=== PATIENT | female | born 1935 | race Caucasian/White ===

== ENCOUNTER → 2017-02-08 | Outpatient (CLI) | payer OTHER | LOC: FIMAGING 09:28 | PROVIDERS: ATTEND Family Medicine | DX: Z12.31 Encounter for screening mammogram for malignant neoplasm of breast (principal) | CPT/HCPCS: G0202 ==

== ENCOUNTER → 2018-02-09 | Outpatient (CLI) | payer OTHER | LOC: FIMAGING 10:04 | PROVIDERS: ATTEND Family Medicine | DX: Z12.31 Encounter for screening mammogram for malignant neoplasm of breast (principal) ==

== ENCOUNTER 2018-11-29 06:53 | Inpatient (IN) | payer OTHER ==
--- NOTE | 2018-11-29 06:16 | PDHPUP ---
History & Physical Update H&P update statement: This history and physical update is based on an assessment of the patient which was completed after admission or registration (within 24 hours), but prior to the surgery/procedure. H&P update: H&P reviewed & patient examined, no change in patient's condition since H&P completed
[~2018-11-29 06:53] MED LIST: ROPIVACAINE 0.2% 80 MG, EPINEPHrine 0.2 MG, KETOROLAC TROMETHAMINE 30 MG in SYRINGE 0 ML IU ONE; TRANEXAMIC ACID 3,000 MG in NS (SYRINGE) 50 ML IRR ONE; ceFAZolin 2 GM/DEXTROSE 100 ML IV ONE
[2018-11-29] MEDS ORDERED: ACETAMINOPHEN 325 MG TAB PO ONE (07:04)
[2018-11-29] MEDS ORDERED: DEXAMETHASONE 4 MG/ML VIAL IVP ONE (07:04)
[2018-11-29] MEDS ORDERED: FAMOTIDINE 20 MG TAB PO ONE (07:04)
[2018-11-29] MEDS ORDERED: LR 1,000 ML IV ONE (07:05)
[2018-11-29] MEDS ORDERED: fentaNYL 100 MCG/2 ML INJ ONE ×2 (07:46→10:54)
[2018-11-29] MEDS ORDERED: ONDANSETRON 4 MG/2 ML VIAL ONE (07:46)
[2018-11-29] MEDS ORDERED: LIDOCAINE 2% 100 MG/5 ML SYR ONE (07:46)
[2018-11-29] MEDS ORDERED: ROPIVACAINE HCL 150 MG/30 ML INJ ONE (07:46)
[2018-11-29] MEDS ORDERED: PROPOFOL/EMULSION 500 MG/50 ML BOTTLE IV ONE ×2 (07:47→09:33)
[2018-11-29] MEDS ORDERED: TRANEXAMIC ACID 3,000 MG/50 ML BAG IRR ONE (07:56)
[2018-11-29] MEDS ORDERED: VANCOMYCIN 1 GM VIAL ONE (08:23)
--- NOTE | 2018-11-29 08:53 | PDANEPAE ---
ANE History of Present Illness left knee djd, here for LTKA ANE Past Medical History - Cardiovascular History Hx Hypertension: Yes Hx Arrhythmias: No Hx Chest Pain: No Hx Coronary Artery / Peripheral Vascular Disease: No Hx CHF / Valvular Disease: No Hx Palpitations: No Cardiovascular History Comment: HIGH CHOLESTEROL - Pulmonary History Hx COPD: No Hx Asthma/Reactive Airway Disease: No Hx Recent Upper Respiratory Infection: No Hx Oxygen in Use at Home: No Hx Sleep Apnea: No Sleep Apnea Screening Result - Last Documented: Negative - Neurologic History Hx Cerebrovascular Accident: No Hx Seizures: No Hx Dementia: No - Endocrine History Hx Diabetes: No Endocrine History Comment: HYPOTHYROID - Renal History Hx Renal Disorders: No Renal History Comment: STRESS INCONTINENCE - Liver History Hx Hepatic Disorders: No - Neurological & Psychiatric Hx Hx Neurological and Psychiatric Disorders: No - Cancer History Hx Cancer: No Cancer History Comment: pre-cancerous removed - Congenital Disorder History Hx Congenital Disorders: No - GI History Hx Gastrointestinal Disorders: Yes Gastrointestinal History Comment: diverticulosis - Other Health History Other Health History: MAC DEGEN R EYE. CARPAL TUNNEL FINGERS - Chronic Pain History Chronic Pain: Yes (R KNEE PAIN) - Surgical History Prior Surgeries: 10/15/15 right TKA with Jeri. cataracts. COLONOSCOPY 2013. CONIZATION OF CERVIX 1972. D&C 1972 ANE Review of Systems Review of Systems: - Exercise capacity METS (RN): 4 METS ANE Patient History - Allergies Allergies/Adverse Reactions: No Known Allergies Allergy (Verified 11/09/18 15:31) - Home Medications Home Medications: Aspirin EC [Aspirin EC 81 mg (*)] 81 mg PO DAILY 11/09/18 [Last Taken 11/23/18] Atorvastatin Calcium [Lipitor 10 mg (*)] 10 mg PO HS 11/09/18 [Last Taken ] Cholecalciferol Vit D3 [Vitamin D3 2000 units tab (OTC)] 2,000 units PO HS 11/09 [Last Taken 11/15/18] Levothyroxine [Synthroid 100 mcg (*)] 100 mcg PO DAILY06 11/09/18 [Last Taken 05:00] Multivitamins [Multivitamin (*)] 1 each PO DAILY 11/09/18 [Last Taken 11/15/18] Vit A/Vit C/Vit E/Zinc/Copper [I-Lynnette Protect Tablet] 1 each PO DAILY 11/09/18 [ Last Taken 11/15/18] amLODIPine BESYLATE [Norvasc 5 mg (*)] 5 - 10 mg PO DAILY 11/09/18 [Last Taken 11/29/18 05:00] - NPO status NPO Since - Liquids (Date): 11/29/18 NPO Since - Liquids (Time): 05:15 NPO Since - Solids (Date): 11/28/18 - Smoking Hx Smoking Status: Never smoked - Family Anes Hx Family Hx Anesthesia Complications: none ANE Labs/Vital Signs - Vital Signs Blood Pressure: 153/72 Heart Rate: 65 Respiratory Rate: 15 O2 Sat (%): 94 Height: 157.48 cm Weight: 104.326 kg ANE Physical Exam - Airway Neck exam: FROM Mallampati Score: Class 2 Mouth exam: normal dental/mouth exam - Pulmonary Pulmonary: no respiratory distress, no rales or rhonchi - Cardiovascular Cardiovascular: regular rate and rhythym, no murmur, rub, or gallop - ASA Status ASA Status: III ANE Anesthesia Plan Anesthesia Plan: GA with mask, spinal Regional Anesthesia: single shot NB Total IV Anesthesia: Yes
[2018-11-29] MEDS ORDERED: BUPIVACAINE 0.25% 30 ML SDV ONE (09:04)
[2018-11-29] MEDS ORDERED: ACETAMINOPHEN 500 MG TAB PO PRN (10:24)
[2018-11-29] MEDS ORDERED: PHENYLEPHRINE HCL 100 MCG/ML SYR IVP PRN (10:24)
[2018-11-29] MEDS ORDERED: HYDROmorphONE/DILAUDID 2 MG/ML INJ IVP PRN (10:24)
[2018-11-29] MEDS ORDERED: DIAZEPAM 5 MG/ML 1 ML SYR IVP PRN (10:24)
[2018-11-29] MEDS ORDERED: LR 500 ML IV PRN (10:24)
[2018-11-29] MEDS ORDERED: oxyCODONE IR 5 MG TAB PO PRN (10:24)
[2018-11-29] MEDS ORDERED: MEPERIDINE 25 MG/0.5 ML AMP IVP PRN (10:24)
[2018-11-29] MEDS ORDERED: NALOXONE HCL 0.4 MG/ML INJ IVP PRN (10:24)
[2018-11-29] MEDS ORDERED: PROMETHAZINE HCL 25 MG/ML INJ IVP PRN (10:45)
[2018-11-29] MEDS ORDERED: MAGNESIUM HYDROXIDE 30 ML UDCUP PO PRN (10:45)
[2018-11-29] MEDS ORDERED: CYCLOBENZAPRINE 10 MG TAB PO PRN (10:45)
[2018-11-29] MEDS ORDERED: ONDANSETRON 4 MG/2 ML VIAL IVP PRN (10:45)
[2018-11-29] MEDS ORDERED: METOCLOPRAMIDE 10 MG/2 ML VIAL IVP PRN (10:45)
[2018-11-29] MEDS ORDERED: DIPHENOXYLATE/ATROPINE LOMOTIL 1 TAB PO PRN (10:45)
[2018-11-29] MEDS ORDERED: diphenhydrAMINE 25 MG CAP PO PRN (10:45)
[2018-11-29] MEDS ORDERED: PROMETHAZINE HCL 25 MG SUPPR PR PRN (10:45)
[2018-11-29] MEDS ORDERED: LACTULOSE 20 GM/30 ML UDCUP PO PRN (10:45)
[2018-11-29] MEDS ORDERED: POLYETHYLENE GLYCOL 3350 17 GM PKT PO PRN (10:45)
[2018-11-29] MEDS ORDERED: TEMAZEPAM 15 MG CAP PO PRN (10:45)
[2018-11-29] MEDS ORDERED: BISACODYL 10 MG SUPP PR PRN (10:45)
[2018-11-29] MEDS ORDERED: ONDANSETRON DISINTEGRATING 4 MG TAB PO PRN (10:45)
--- NOTE | 2018-11-29 10:45 | POSTOPPROG ---
Post Op Note Date of Operation: 11/29/18 Surgeon: Ankur Wilcox Process Safety Specialist: Mary Jo Wilcox and Stephanie Gama PA-C Anesthesiologist: Dr. Eva Gr Anesthesia: Spinal (adductor canal block), Other (Specify) Pre-op Diagnosis: left knee OA Post-op Diagnosis: same Indication: left knee pain Procedure: LTKA Findings: severe OA of left knee Inf/Abcess present in the surg proc area at time of surgery?: No EBL: 50-100
[2018-11-29] MEDS: fentaNYL 100 MCG/2 ML INJ IVP PRN ×2 (10:55→11:20)
--- NOTE | 2018-11-29 10:58 | POSTANESTH ---
Post Anesthetic Evaluation Cardiovascular Status: Normal, Stable Respiratory Status: Normal, Stable Level of Consciousness/Mental Status: Can Participate in Eval, Alert and Oriented Pain Control: Adequate, Prn Tx Ordered Nausea/Vomiting Control: Adequate, Prn Tx Ordered Complications Possibly Related to Anesthesia: None Noted (feeling pain and moving both lower extrem, 5/10. block tolerated well)
[2018-11-29] MEDS ORDERED: LR 1,000 ML IV SCH (11:00)
[2018-11-29] MEDS: oxyCODONE IR 5 MG TAB PO PRN ×3 (12:06→17:49)
[2018-11-29] MEDS: ceFAZolin 2 GM/DEXTROSE 100 ML IV SCH ×2 (12:52→21:37)
--- NOTE | 2018-11-29 13:58 | PDMN ---
Medical Necessity Medical necessity: Pt meets IP criteria per PA; est los >2 mn s/p L TKA (cpt 72412); recommending IP due to advanced age, hypothyroid, HTN & pain control; per order 11/29/18
[2018-11-29] MEDS: ACETAMINOPHEN 325 MG TAB PO SCH ×2 (17:48→21:48)
[2018-11-29] MEDS ORDERED: ATORVASTATIN CALCIUM 10 MG TAB PO SCH (21:00)
[2018-11-29] MEDS: SENNOSIDES/DOCUSATE SODIUM TAB PO SCH (21:37)
[2018-11-29] MEDS: ASPIRIN 81 MG CHEWABLE TAB PO SCH (21:37)
[2018-11-29] MEDS: FAMOTIDINE 20 MG TAB PO SCH (21:38)
[2018-11-30] MEDS: ACETAMINOPHEN 325 MG TAB PO SCH ×2 (05:05→13:23)
[2018-11-30] MEDS ORDERED: LEVOTHYROXINE 100 MCG TAB PO SCH (06:00)
--- NOTE | 2018-11-30 08:58 | GOP ---
[f rep st] OPERATIVE REPORT DATE OF OPERATION: 11/29/2018 SURGEON: Denice Wilcox MD BUSINESS PLANNER: LEWIS Rose ANESTHESIA: Spinal. PREOPERATIVE DIAGNOSIS: Left knee osteoarthritis. POSTOPERATIVE DIAGNOSIS: Left knee osteoarthritis. PROCEDURE PERFORMED: Left total knee arthroplasty. FINDINGS: ESTIMATED BLOOD LOSS: 30 cc. INDICATIONS: This is an 82-year-old female with severe and progressive pain and deformity of the lef t knee unresponsive to conservative care. Risks and benefits of the surgical intervention were expla ined in detail. DESCRIPTION OF PROCEDURE: The patient was brought to the operative room and placed on the table in t he supine position. Spinal anesthesia was induced without difficulty. A pneumatic tourniquet was ap plied about the left proximal thigh, and the leg was prepped and draped in a sterile fashion. The le g nguyen was applied. After exsanguination by elevation the tourniquet was inflated to 300 mm of alona cury. Incision was made anterior medial from the tibial tuberosity to a point 2 cm proximal to the superior pole of the patella. Medial parapatellar arthrotomy was carried out from the superior pole of the p atella and posteriorly in line with the fibers of the Type II VMO. The medial collateral ligament wa s elevated and the infrapatellar fat pad was resected. The patella was everted and the articular surface was excised. A 35 mm patellar button was placed. T distal femoral guide hole was drilled and the 60-degree alignment teodoro was placed. An 8 mm distal femoral cut was made without difficulty. Attention was turned to the tibia and a standard 9 mm cut based on the lateral tibial condyle was per formed. The tibial articular surface was excised without difficulty. Attention was turned back to the femur and a size 4 Triathlon femoral cutting block was positioned. Anterior, posterior, and chamfer cuts were made, followed by the intercondylar box cut. The knee was extended and the remnants of the medial and lateral meniscus were excised. The posterio r capsule was injected with ropivacaine, epinephrine and Toradol. A size 4 tibial tray was positione d. Trial reduction was then carried out. There was excellent range of motion, alignment, and stabil ity using the 9 mm polyethylene. All trials were then removed. The joint was thoroughly irrigated and carefully dried. Two packages of cement and 2 grams of vancomycin were mixed in the vacuum mixer and placed on the fixation surface s of all surfaces of the components. The components were implanted and all excess cement was thoroug hly removed. The permanent 9 mm polyethylene was placed without difficulty. The tourniquet was deflated and all bleeders were coagulated. The wound was thoroughly irrigated and closed using interrupted sutures of 2-0 Vicryl for the joint capsule. The subcu was closed with 3-0 Vicryl and the skin with 4-0 Monocryl. Dermabond and Steri-Strips were applied followed by a compre ssive dressing. The patient was then moved from the operating room to the recovery room in good cond ition, having tolerated the procedure well. PATHOLOGY: Severe medial and patellofemoral osteoarthritis. /[id number]/MODL
[2018-11-30] MEDS ORDERED: amLODIPine BESYLATE 5 MG TAB PO SCH (09:00)
--- NOTE | 2018-11-30 09:14 | ASMTLACE ---
LACE Length of stay for Answers: 2 days current admission Acuity / Level of Answers: Yes Care: Did the patient have an inpatient admission? Comorbidities - select Answers: Opioid dependence all that apply / Chronic pain Other Notes: HTN; Hypothyroid # of Emergency department Answers: 0 visits in the last 6 months Score: 10 Date Signed: 11/30/2018 09:13 AM Electronically Signed By:CARLOS Saldaña
--- NOTE | 2018-11-30 09:24 | SOAPPROG ---
SOAP Progress Note Assessment/Plan: Assessment: Patient is doing well POD 1 s/p L TKA Pain management: pain is well controlled on oral pain meds. VTE ppx: recommend aspirin 81 mg BID for 4 weeks, cont LONA and SCDs D/c planning: Patient has done better than anticipated and would like to be discharged to home today. Patient must be released from PT before discharge to home. Plan: 11/30/18 09:23 11/30/18 09:23 Subjective: patient is doing well today, denies SOB ,chest pain and N/V Objective: Vital Signs Temp Pulse Resp BP Pulse Ox 36.4 C 48 L 18 168/63 H 100 11/30/18 07:20 11/30/18 07:20 11/30/18 07:20 11/30/18 07:20 11/30/18 07:20 Laboratory Results 11/30/18 04:53 11/30/18 04:53 11/29/18 11/30/18 12/01/18 05:59 05:59 05:59 Intake Total 2442 Output Total 1250 Balance 1192 LLE: incision dressing is clean and dry, NVI, +pf/df ICD10 Worksheet Patient Problems: Problems Problem Status Onset Primary localized osteoarthritis of left knee Acute Primary localized osteoarthritis of right knee Acute
[2018-11-30] MEDS: SENNOSIDES/DOCUSATE SODIUM TAB PO SCH (09:34)
[2018-11-30] MEDS: ASPIRIN 81 MG CHEWABLE TAB PO SCH (09:34)
[2018-11-30] MEDS: oxyCODONE IR 5 MG TAB PO PRN ×2 (09:35→13:23)
[2018-11-30] MEDS: FAMOTIDINE 20 MG TAB PO SCH (09:36)
--- NOTE | 2018-11-30 11:09 | GDS ---
[f rep st] DISCHARGE SUMMARY ADMISSION DIAGNOSIS: Left knee osteoarthritis. DISCHARGE DIAGNOSIS: Left knee osteoarthritis. PROCEDURE: Left total knee arthroplasty. VTE PROPHYLAXIS: Recommend aspirin 81 mg twice daily for 4 weeks. BRIEF DESCRIPTION OF HOSPITAL STAY: Patient was admitted for an elective joint arthroplasty. The patient tolerated the procedure well and has passed physical therapy. The patient was given appropriate antibiotic prophylaxis and venous thromboembolism prophylaxis. The patient's pain was well controlled on oral pain medication, patient was holding down food, and had urinated. Decision was made to discharge the patient. The patient was given post-operative prescriptions pre-operatively. PLAN: Followup scheduled with Dr. Wilcox's office on December 19 at 11:45 to see Karen Gama. /[id number]/MODL MTDD
[2018-11-30 12:53] VITALS: BP 146/66
== END 2018-11-30 14:03 | disposition home or self-care (01) | DRG 470 ==
LOC: F3N 06:53
PROVIDERS: ADMIT Orthopaedic Surgery; ATTEND Orthopaedic Surgery
PROC: 0SRD0J9 Replacement of Left Knee Joint with Synthetic Substitute, Cemented, Open Approach (ICD-10-PCS; principal; 2018-11-29 09:00)
DX: M17.12 Unilateral primary osteoarthritis, left knee (principal); I10 Essential (primary) hypertension; E78.00 Pure hypercholesterolemia, unspecified; E03.9 Hypothyroidism, unspecified; N39.3 Stress incontinence (female) (male); Z96.651 Presence of right artificial knee joint
CPT/HCPCS: 97116-GP; 97161-GP; C1713; J0171; J0690; J1100; J1885; J2001; J2405; J2704; J2795; J3010; J3370

== ENCOUNTER → 2019-02-12 | Outpatient (CLI) | payer OTHER | LOC: FIMAGING 12:48 ==